=== PATIENT | male | born 1955 | race African-American/Black ===

== ENCOUNTER 2020-07-02 22:11 | Inpatient (IN) | payer MEDICAID ==
[~2020-07-02] VITALS: Ht 182.9 cm; Wt 80.7 kg
[2020-07-02 23:08] LABS: BASOPHILS 0.7 % (0-2); EOSINOPHILS 0.1 % (0-7); HEMATOCRIT 38.9 % (42.0-54.0); HEMOGLOBIN 13.3 g/dL (13.5-17.5); IMMATURE GRANULOCYTES 0.2 % (0-5); LYMPHOCYTES 27.3 % (15-50); MCH 32.3 pg (26.0-34.0); MCHC 34.2 g/dL (31.0-37.0); MCV 94.4 fL (80.0-100.0); MONOCYTES 7.2 % (2-11); NEUTROPHIL ABS# 5.19 10x3/uL (1.78-5.38); NEUTROPHILS 64.5 % (40-80); PLATELET COUNT 154 10x3/uL (130-400); RBC 4.12 10x6/uL (4.20-6.10); RDW 14.7 % (11.5-14.5); WBC 8.1 10x3/uL (4.8-10.8)
[2020-07-02 23:33] LABS: BILIRUBIN NEGATIVE (NEGATIVE); KETONE NEGATIVE (NEGATIVE); NITRITE NEGATIVE (NEGATIVE); UROBILINOGEN NORMAL mg/dL (< 2)
[2020-07-02 23:34] LABS: BACTERIA NONE SEEN HPF (NONE SEEN); SQUAMOUS EPITHELIAL 0-5 HPF (0-4); WHITE CELLS - URINE NONE SEEN HPF (0-1)
[2020-07-02 23:34] LABS: CALC OSMOLALITY 282 mosm/kg (275-300); CALCIUM 8.9 mg/dL (8.5-10.1); CARBON DIOXIDE 25.1 mmol/L (21.0-32.0); CHLORIDE - SERUM 101 mmol/L (98-107); GLUCOSE 99 mg/dL (74-106); SODIUM 143 mmol/L (136-145); UREA NITROGEN 7 mg/dL (7-18); eGFR NON AFRICAN AMERICAN 80 mL/min (90-120)
[2020-07-02 23:42] LABS: ALBUMIN 3.7 g/dL (3.4-5.0); ALKALINE PHOSPHATASE 170 U/L (30-120); ALT (SGPT) 56 U/L (10-68); AMYLASE - SERUM 80 U/L (25-115); BILIRUBIN - TOTAL 0.71 mg/dL (0.2-1.3); LIPASE 194 U/L (73-393); PROTEIN - SERUM 7.9 g/dL (6.4-8.2)
[2020-07-02 23:49] LABS: TROPONIN-I < 0.017 ng/mL (0.000-0.060)
[2020-07-03] VITALS (7 sets, daily range): BP systolic 96–186; BP diastolic 52–101; BMI 24.2
[2020-07-03 02:27] LABS: APTT 33.9 SECONDS (22.8-39.4); INR 1.29 (0.85-1.17); PROTIME 14.9 SECONDS (11.6-15.0)
[2020-07-03] MEDS ORDERED: NORVASC10 MG PO (03:22)
--- NOTE | 2020-07-03 03:40 | NUR ---
RECEIVED PT FROM ER VIA WHEELCHAIR. PT SITTING UP IN BED A&O X4. PIV TO RIGHT AC PATENT AND S/L, NO REDNESS OR SWELLING. ABD DISTENDED AND PT C/O PAIN 11/20. SCARS TO BILAT LOWER EXTREM. PT ABLE TO AMBULATE AD JENIFER. EDUCATED PT ON ISP, CL AND NEEDS, VERBALIZED UNDERSTANDING. BED LOW, CL IN REACH.
--- NOTE | 2020-07-03 07:30 | NUR ---
REC'D IN BED AWAKE. RESP EVEN AND UNLABORED WITH NO DISTRESS NOTED. CAN EXPRESS NEEDS AND WANTS. NO C/O NOTED OR VOICED. ASSESSMENT COMPLETED. C/L IN REACH AT BEDSIDE.
--- NOTE | 2020-07-03 09:31 | NUR ---
CALLED WAS PLACED LIFE TEACHER ABOUT PT HAVING ELEVATED BP OF 186/95 AND HE'S NPO. GOT THE OK TO GIVE PT PO CLONIDINE WITH SIP OF H2O. C/L IN REACH AT BEDSIDE.
[2020-07-03 10:17] LABS: BASOPHILS 0.5 % (0-2); EOSINOPHILS 0.3 % (0-7); HEMATOCRIT 43.5 % (42.0-54.0); HEMOGLOBIN 14.9 g/dL (13.5-17.5); IMMATURE GRANULOCYTES 0.2 % (0-5); LYMPHOCYTE ABS# 2.57 10x3/uL (1.32-3.57); LYMPHOCYTES 26.3 % (15-50); MCH 32.5 pg (26.0-34.0); MCHC 34.3 g/dL (31.0-37.0); MCV 94.8 fL (80.0-100.0); MEAN PLATELET VOLUME 9.7 fL (7.4-10.4); MONOCYTES 8.2 % (2-11); NEUTROPHIL ABS# 6.31 10x3/uL (1.78-5.38); NEUTROPHILS 64.5 % (40-80); PLATELET COUNT 169 10x3/uL (130-400); RBC 4.59 10x6/uL (4.20-6.10); RDW 15.2 % (11.5-14.5); WBC 9.8 10x3/uL (4.8-10.8)
--- NOTE | 2020-07-03 12:17 | NUR ---
I have reviewed this patient and I concur with the Shift Assessment completed by the Licensed Practical Nurse today this shift.
--- NOTE | 2020-07-03 12:35 | NUR ---
Nutrition reassessment: Diet order: Renal PO intake ~50% average of meals Labs reviewed; HD on hold at this time Ht: 6'2" Admit wt: 216# IBW: 190# +/-10% BMI: 27.8 Meds: daily MVI +BM Pt estimated nutritional needs remain the same from admit: 5764-4133 kcal (25-30 IBW) 70-85 gm protein ( 0.8-1.0 gm/kg IBW) 5208-0280 ml fluid or per MD Nutrition diagnosis remains inadequate oral intake R/T not feeling well AEB PO intake continues to be < 50% of meals. Nutrition goals: - PO intake will increase to =-/> 75% of meals, snacks - Meet est fluid needs without fluid overload - Stable wt +/-3# - Glucose maintained at or near normal range Nutrition interventions: Will continue to provide food choices with selective menus and honor food preferences within diet restrictions. Will offer Nerpo nutritional supplement with meals Recommendations: Please get a current wt to chart. RDN follow-up: 07/05/20
--- NOTE | 2020-07-03 13:37 | NUR ---
SPOKE WITH PT BROTHER UPDATE GIVEN AT THIS TIME.
--- NOTE | 2020-07-03 14:14 | NUR ---
C/O PAIN NOTED TI ABD/LEFT SIDE WAS MEDICATED WITH MORPHINE PER ORDERS. C/L IN REACH AT BEDSIDE.
[2020-07-03 19:02] LABS: UDS - AMPHET NEGATIVE QUAL (NEGATIVE); UDS - BARB NEGATIVE QUAL (NEGATIVE); UDS - BENZO NEGATIVE QUAL (NEGATIVE); UDS - COCAINE NEGATIVE QUAL (NEGATIVE); UDS - OPIATE POSITIVE QUAL (NEGATIVE); UDS - PCP NEGATIVE QUAL (NEGATIVE); UDS - THC NEGATIVE QUAL (NEGATIVE)
[2020-07-04 04:00] VITALS: BP 154/91
--- NOTE | 2020-07-04 04:00 | NUR ---
EMERSON'S ANXIETY WAS MANAGED WITH THE PRESCRIBED ATIVAN, HE APPEARED TO REST WELL THROUGH THE NIGHT.
[2020-07-04 06:53] LABS: BASOPHILS 0.6 % (0-2); EOSINOPHILS 0.7 % (0-7); HEMATOCRIT 35.8 % (42.0-54.0); IMMATURE GRANULOCYTES 0.3 % (0-5); LYMPHOCYTE ABS# 1.44 10x3/uL (1.32-3.57); LYMPHOCYTES 20.9 % (15-50); MCH 31.6 pg (26.0-34.0); MCHC 33.5 g/dL (31.0-37.0); MCV 94.2 fL (80.0-100.0); MEAN PLATELET VOLUME 9.5 fL (7.4-10.4); NEUTROPHIL ABS# 4.45 10x3/uL (1.78-5.38); NEUTROPHILS 64.5 % (40-80); PLATELET COUNT 148 10x3/uL (130-400); RDW 14.4 % (11.5-14.5); WBC 6.9 10x3/uL (4.8-10.8)
[2020-07-04 07:08] LABS: ALBUMIN 3.4 g/dL (3.4-5.0); ANION GAP 10.8 mmol/L (8-16); BILIRUBIN - TOTAL 1.26 mg/dL (0.2-1.3); CALCIUM 8.7 mg/dL (8.5-10.1); CARBON DIOXIDE 31.4 mmol/L (21.0-32.0); CREATININE - SERUM 1.1 mg/dL (0.6-1.3); MAGNESIUM - SERUM 1.5 mg/dL (1.8-2.4); POTASSIUM - SERUM 3.2 mmol/L (3.5-5.1); PROTEIN - SERUM 7.5 g/dL (6.4-8.2)
[2020-07-04 08:55] VITALS: BP 158/91
--- NOTE | 2020-07-04 11:23 | MORECARE ---
CASE MANAGEMENT DISCHARGE SUMMARY PATIENT: EDU CHUNG UNIT: [id number] ADM DATE: 07/03/20 AGE: 65 : 55 SEX: M ROOM/BED: D.2240 AUTHOR: CANDIDA,DOC PHYSICIAN: REFERRING PHYSICIAN: AMANDA SIMEON MD DATE OF SERVICE: 07/04/20 Case Management Discharge Planning Summary DCP REVIEW SUMMARY ANTICIPATED D/C DATE: EXPECTED LOS : CASE STATUS: DCP Initiated INITIAL REVIEW: 07/03/2020 INITIAL REVIEWER: Mandie Lennon FINAL DISCHARGE DISPOSITION: : FINAL REVIEWER: FINAL REVIEW DATE: DCP Focus Questions & Answers - Added on: QUESTION: ANSWER : PATIENT: EDU CHUNG ENCOUNTER: [id number] MEDICAL RECORD#: [id number] ADMISSION DATE: 07/03/2020 DISCHARGE DATE: ATTENDING MD: CAILIN SIMEON : AGE: 65 MARITAL STATUS: S DC PLAN ID: [id number] FACILITY: [facility] PRINTED ON: 07/04/20 11:23 CT All edits/amendments must be made on the electronic document DICTATION DATE: 07/04/20 112 SERVICE CORRESPONDENT: DM 07/04/20 1123 RPT#: [id number] DC DATE: STATUS: ADM IN [facility] [address] [place] [address] END OF REPORT
--- NOTE | 2020-07-04 11:36 | MORECARE ---
CASE MANAGEMENT DISCHARGE SUMMARY PATIENT: EDU CHUNG UNIT: [id number] ADM DATE: 07/03/20 AGE: 65 : 55 SEX: M ROOM/BED: D.2240 AUTHOR: CANDIDA,DOC PHYSICIAN: REFERRING PHYSICIAN: AMANDA SIMEON MD DATE OF SERVICE: 07/04/20 Case Management Discharge Planning Summary COMMENTS ENTERED DATE: 07/04/20 11:22 CT COMMENT TYPE: Discharge Planning REVIEWER: Mandie Lennon CM met with patient at bedside after obtaining verbal consent. CM discussed availability / needs of home health, REHAB and medical equipment. Met with patient and his sister Griselda yesterday. He lives with family, has [place] here [place]. States has no pcp and uses [facility] for pharmacy. His phone number at home is [phone]. Patient and family are unsure of any discharge needs at this time. They also asked about Medicaid, I called Eber from [employer] and he said he will meet with them. CM to follow and assist as needed. DCP REVIEW SUMMARY ANTICIPATED D/C DATE: EXPECTED LOS : CASE STATUS: DCP Initiated INITIAL REVIEW: 07/03/2020 INITIAL REVIEWER: Mandie Lennon FINAL DISCHARGE DISPOSITION: : FINAL REVIEWER: FINAL REVIEW DATE: DCP Focus Questions & Answers - Added on: QUESTION: ANSWER : PATIENT: EDU CHUNG ENCOUNTER: [id number] MEDICAL RECORD#: [id number] ADMISSION DATE: 07/03/2020 DISCHARGE DATE: ATTENDING MD: CAILIN SIMEON : AGE: 65 MARITAL STATUS: S DC PLAN ID: [id number] FACILITY: [facility] PRINTED ON: 07/04/20 11:36 CT All edits/amendments must be made on the electronic document DICTATION DATE: 07/04/20 113 PRESALES SENIOR SPECIALIST: MARRY 07/04/20 1136 RPT#: [id number] DC DATE: STATUS: ADM IN [facility] [address] [place] [address] END OF REPORT
[2020-07-04 13:07] VITALS: BP 133/84
[2020-07-04 14:45] VITALS: Ht 182.9 cm; Wt 80.7 kg
[2020-07-04 17:07] VITALS: BP 137/91
[2020-07-04 20:00] VITALS: BP 143/82
[2020-07-05 04:00] VITALS: BP 153/92
--- NOTE | 2020-07-05 04:31 | NUR ---
PATIENT HAS HAD HIS PAIN CONTROLLED WITH THE PRESCRIBED PAIN MEDICATION, HE APPEARS TO HAVE RESTED WELL THROUGH THE NIGHT.
--- NOTE | 2020-07-05 07:08 | NUR ---
UP IN ROOM,WITHOUT DISTRESS. DENIES NEEDS AT PRESENT.INSTRUCTED CALL LIGHT USE.
[2020-07-05 09:00] VITALS: BP 148/98
--- NOTE | 2020-07-05 10:26 | MORECARE ---
CASE MANAGEMENT DISCHARGE SUMMARY PATIENT: EDU CHUNG UNIT: [id number] ADM DATE: 07/03/20 AGE: 65 : 55 SEX: M ROOM/BED: D.2240 AUTHOR: CANDIDA,DOC PHYSICIAN: REFERRING PHYSICIAN: AMANDA SIMEON MD DATE OF SERVICE: 07/05/20 Case Management Discharge Planning Summary COMMENTS ENTERED DATE: 07/04/20 11:22 CT COMMENT TYPE: Discharge Planning REVIEWER: Mandie Lennon CM met with patient at bedside after obtaining verbal consent. CM discussed availability / needs of home health, REHAB and medical equipment. Met with patient and his sister Griselda yesterday. He lives with family, has [place] here from [place] state. has no pcp and uses [facility] for pharmacy. His phone number at home is [phone]. Patient and family are unsure of any discharge needs at this time. They also asked about Medicaid, I called Eber from [employer] and he said he will meet with them. CM to follow and assist as needed. DCP REVIEW SUMMARY ANTICIPATED D/C DATE: EXPECTED LOS : CASE STATUS: DCP Initiated INITIAL REVIEW: 07/03/2020 INITIAL REVIEWER: Mandie Lennon FINAL DISCHARGE DISPOSITION: : FINAL REVIEWER: FINAL REVIEW DATE: LACE: UPDATED BY: [email or web address]: Mandie Lennon on 07/04/20 15:39 CT QUESTION: ANSWER Length of Stay (Prior Admit): None Acute Admission: Inpatient Comorbidity: (1PT) DM no complications, Cerebrovascular Disease, Hx of [place], PVD, PUD Comorbidity Total Score 1 PT Emergency Room visits during previous 6 months: 0 Visits DCP Focus Questions & Answers - Added on: QUESTION: ANSWER : PATIENT: EDU CHUNG ENCOUNTER: [id number] MEDICAL RECORD#: [id number] ADMISSION DATE: 07/03/2020 DISCHARGE DATE: ATTENDING MD: CAILIN SIMEON : AGE: 65 MARITAL STATUS: S DC PLAN ID: [id number] FACILITY: [facility] PRINTED ON: 07/05/20 10:26 CT All edits/amendments must be made on the electronic document DICTATION DATE: 07/05/20 1026 HEAT TREATING FURNACE TENDER: MARRY 07/05/20 1026 RPT#: [id number] DC DATE: STATUS: ADM IN [facility] [address] [place] [address] END OF REPORT
[2020-07-05 11:18] LABS: BASOPHILS 0.3 % (0-2); EOSINOPHILS 0.6 % (0-7); HEMATOCRIT 36.6 % (42.0-54.0); HEMOGLOBIN 12.2 g/dL (13.5-17.5); IMMATURE GRANULOCYTES 0.1 % (0-5); LYMPHOCYTE ABS# 1.13 10x3/uL (1.32-3.57); LYMPHOCYTES 16.9 % (15-50); MCH 31.9 pg (26.0-34.0); MCHC 33.3 g/dL (31.0-37.0); MCV 95.6 fL (80.0-100.0); MEAN PLATELET VOLUME 10.1 fL (7.4-10.4); MONOCYTES 11.2 % (2-11); NEUTROPHIL ABS# 4.73 10x3/uL (1.78-5.38); NEUTROPHILS 70.9 % (40-80); PLATELET COUNT 145 10x3/uL (130-400); RBC 3.83 10x6/uL (4.20-6.10); RDW 14.5 % (11.5-14.5); WBC 6.7 10x3/uL (4.8-10.8)
[2020-07-05 11:46] LABS: ALBUMIN 3.4 g/dL (3.4-5.0); ANION GAP 16.2 mmol/L (8-16); CARBON DIOXIDE 28.5 mmol/L (21.0-32.0); CREATININE - SERUM 1.3 mg/dL (0.6-1.3); POTASSIUM - SERUM 3.7 mmol/L (3.5-5.1); PROTEIN - SERUM 6.9 g/dL (6.4-8.2)
[2020-07-05 12:17] VITALS: BP 106/75
--- NOTE | 2020-07-05 13:46 | NUR ---
Nutrition follow-up: Pt c/o constipation; appetite okay Diet order: regular No po intake recorded Labs reviewed Wt: 177# Miralax ordered for constipation Will continue to provide food choices and honor food preferences. Follow-up: 07/11/20
[2020-07-05] MEDS ORDERED: ALDACTONE25 MG PO (14:17)
--- NOTE | 2020-07-05 17:47 | NUR ---
DC HOME WITH ALL PERSONAL BELONGS AND VOICE UNDERSTANDING OF DC INSTRUCTIONS.
--- NOTE | 2020-07-05 19:31 | MORECARE ---
CASE MANAGEMENT DISCHARGE SUMMARY PATIENT: EDU CHUNG UNIT: [id number] ADM DATE: 07/03/20 AGE: 65 : 55 SEX: M ROOM/BED: D.2240 AUTHOR: CANDIDA,DOC PHYSICIAN: REFERRING PHYSICIAN: AMANDA SIMEON MD DATE OF SERVICE: 07/05/20 Case Management Discharge Planning Summary COMMENTS ENTERED DATE: 07/04/20 11:22 CT COMMENT TYPE: Discharge Planning REVIEWER: Mandie Lennon CM met with patient at bedside after obtaining verbal consent. CM discussed availability / needs of home health, REHAB and medical equipment. Met with patient and his sister Griselda yesterday. He lives with family, has [place] here from [place]. has no pcp and uses [facility] for pharmacy. His phone number at home is [phone]. Patient and family are unsure of any discharge needs at this time. They also asked about Medicaid, I called Eber from [employer] and he said he will meet with them. CM to follow and assist as needed. DCP REVIEW SUMMARY ANTICIPATED D/C DATE: EXPECTED LOS : CASE STATUS: DCP Initiated INITIAL REVIEW: 07/03/2020 INITIAL REVIEWER: Mandie Lennon FINAL DISCHARGE DISPOSITION: : FINAL REVIEWER: FINAL REVIEW DATE: LACE: UPDATED BY: [id number]: Mandie Lennon on 07/04/20 15:39 CT QUESTION: ANSWER Length of Stay (Prior Admit): None Acute Admission: Inpatient Comorbidity: (1PT) DM no complications, Cerebrovascular Disease, Hx of MS, PVD, PUD Comorbidity Total Score 1 PT Emergency Room visits during previous 6 months: 0 Visits DCP Focus Questions & Answers - Added on: QUESTION: ANSWER : PATIENT: EDU CHUNG ENCOUNTER: [id number] MEDICAL RECORD#: [id number] ADMISSION DATE: 07/03/2020 DISCHARGE DATE: 07/05/2020 ATTENDING MD: CAILIN SIMEON : AGE: 65 MARITAL STATUS: S DC PLAN ID: [id number] FACILITY: [facility] PRINTED ON: 07/05/20 19:31 CT All edits/amendments must be made on the electronic document DICTATION DATE: 07/05/201930 MOLD CARPENTER: MARRY 07/05/201930 RPT#: [id number] DC DATE:07/05/20 STATUS: DIS IN [facility] [address] [facility] [place] [address] END OF REPORT
== END 2020-07-05 17:47 | disposition home or self-care (01) | DRG 434 ==
LOC: D.ER 22:11 → D.MS 07-03 02:32
PROVIDERS: Family Medicine; ADMIT Family Medicine; ATTEND Family Medicine
DX: K70.31 Alcoholic cirrhosis of liver with ascites (principal); K80.80 Other cholelithiasis without obstruction; I10 Essential (primary) hypertension; K21.9 Gastro-esophageal reflux disease without esophagitis; R74.01 Elevation of levels of liver transaminase levels; E87.6 Hypokalemia; J45.909 Unspecified asthma, uncomplicated; Z85.528 Personal history of other malignant neoplasm of kidney

== ENCOUNTER 2020-08-12 11:23 | Inpatient (IN) | payer MEDICAID ==
[~2020-08-12] VITALS: Ht 182.9 cm; Wt 80.9 kg
[~2020-08-12 11:23] MED LIST: ALDACTONE25 MG PO; NORVASC10 MG PO
[2020-08-12 12:19] LABS: BASOPHILS 0.4 % (0-2); EOSINOPHILS 0.1 % (0-7); HEMATOCRIT 34.9 % (42.0-54.0); HEMOGLOBIN 11.7 g/dL (13.5-17.5); IMMATURE GRANULOCYTES 0.1 % (0-5); LYMPHOCYTE ABS# 0.58 10x3/uL (1.32-3.57); LYMPHOCYTES 7.7 % (15-50); MCH 31.9 pg (26.0-34.0); MCHC 33.5 g/dL (31.0-37.0); MCV 95.1 fL (80.0-100.0); MEAN PLATELET VOLUME 9.6 fL (7.4-10.4); MONOCYTES 6.3 % (2-11); NEUTROPHIL ABS# 6.45 10x3/uL (1.78-5.38); NEUTROPHILS 85.4 % (40-80); PLATELET COUNT 176 10x3/uL (130-400); RBC 3.67 10x6/uL (4.20-6.10); WBC 7.6 10x3/uL (4.8-10.8)
[2020-08-12 12:34] LABS: CALC OSMOLALITY 268 mosm/kg (275-300); CALCIUM 9.2 mg/dL (8.5-10.1); CARBON DIOXIDE 20.8 mmol/L (21.0-32.0); CHLORIDE - SERUM 96 mmol/L (98-107); GLUCOSE 118 mg/dL (74-106); SODIUM 134 mmol/L (136-145); UREA NITROGEN 12 mg/dL (7-18); eGFR NON AFRICAN AMERICAN 80 mL/min (90-120)
[2020-08-12 12:43] LABS: ALBUMIN 3.5 g/dL (3.4-5.0); ALKALINE PHOSPHATASE 200 U/L (30-120); ALT (SGPT) 51 U/L (10-68); AMYLASE - SERUM 66 U/L (25-115); BILIRUBIN - TOTAL 1.24 mg/dL (0.2-1.3); LIPASE 73 U/L (73-393); PROTEIN - SERUM 7.8 g/dL (6.4-8.2)
[2020-08-12 12:46] LABS: TROPONIN-I < 0.017 ng/mL (0.000-0.060)
[2020-08-12 13:51] LABS: INR 1.35 (0.85-1.17); PROTIME 15.5 SECONDS (11.6-15.0)
--- NOTE | 2020-08-12 14:40 | NUR ---
FRENCH EDGE OPERATOR AND INCOME AUDITOR NOTIFIED OF STRICT NEED FOR PT TO REMAIN ON TELE AT ALL TIMES, NOTE MADE INSTRUCTED
[2020-08-12 14:43] VITALS: BP 177/93; BMI 24.2
[2020-08-12 19:35] VITALS: Ht 182.9 cm; Wt 80.9 kg
[2020-08-12 20:00] VITALS: BP 166/99
[2020-08-13 02:11] LABS: CREATINE KINASE 353 UL (21-232); TROPONIN-I 0.021 ng/mL (0.000-0.060)
[2020-08-13 04:00] VITALS: BP 135/79
[2020-08-13 06:04] LABS: BASOPHILS 0.6 % (0-2); EOSINOPHILS 0.5 % (0-7); HEMOGLOBIN 10.2 g/dL (13.5-17.5); IMMATURE GRANULOCYTES 0.2 % (0-5); LYMPHOCYTE ABS# 1.92 10x3/uL (1.32-3.57); LYMPHOCYTES 23.4 % (15-50); MCH 31.8 pg (26.0-34.0); MCV 93.5 fL (80.0-100.0); MEAN PLATELET VOLUME 10.5 fL (7.4-10.4); MONOCYTES 10.2 % (2-11); NEUTROPHIL ABS# 5.33 10x3/uL (1.78-5.38); NEUTROPHILS 65.1 % (40-80); PLATELET COUNT 154 10x3/uL (130-400); RBC 3.21 10x6/uL (4.20-6.10); WBC 8.2 10x3/uL (4.8-10.8)
[2020-08-13 06:17] LABS: INR 1.4 (0.85-1.17); PROTIME 15.9 SECONDS (11.6-15.0)
[2020-08-13 06:42] LABS: ALKALINE PHOSPHATASE 157 U/L (30-120); ALT (SGPT) 42 U/L (10-68); BILIRUBIN - TOTAL 1.58 mg/dL (0.2-1.3); CALCIUM 9.2 mg/dL (8.5-10.1); CHLORIDE - SERUM 103 mmol/L (98-107); CREATINE KINASE 282 UL (21-232); CREATININE - SERUM 1.2 mg/dL (0.6-1.3); GLUCOSE 94 mg/dL (74-106); PHOSPHOROUS 2.6 mg/dL (2.5-4.9); SODIUM 139 mmol/L (136-145); TROPONIN-I 0.021 ng/mL (0.000-0.060); eGFR NON AFRICAN AMERICAN 64 mL/min (90-120)
[2020-08-13 06:43] LABS: CALC OSMOLALITY 278 mosm/kg (275-300); POTASSIUM - SERUM 3.3 mmol/L (3.5-5.1); UREA NITROGEN 16 mg/dL (7-18)
--- NOTE | 2020-08-13 07:30 | NUR ---
ASSESSMENT PER FLOW SHEET. PATIENT IS WITHOUT DISTRESS.ASSISTED TO BATHROOM AND BACK TO BED. ABIEL PLACED ON BED FOR FALL PREVENTION. IS INSTRUCTED WITH 700ML RETURN DEMONSTRATION. PLEXI PULSES PLACED ON PATIENT.CALL LIGHT USE INSTRUCTED. ABIEL ON AND WORKING.
--- NOTE | 2020-08-13 07:48 | NUR ---
PT DID C/O UNCONTROLLED PAIN LAST NIGHT WITH ARINA, PAPER BAG MACHINE OPERATOR, OC NOTIFIED AND NORCO D/C'D WITH MS ORDERED AND EFFECTIVE FOR PAIN RELIEF. PT'S BP WAS 163/96 AND ARINA AGAIN CALLED AND ADVISED THIS NURSE TO GIVE PRN ATIVAN FOR SAME. CONSENTS HAVE BEEN OBTAINED AND EKG FOR PT PROCEDURE TODAY. PT NO LONGER STEADY ON FEET AND INCREASED FALL PRECAUTIONS IMPLEMENTED.
[2020-08-13 08:59] LABS: BILIRUBIN NEGATIVE (NEGATIVE); KETONE NEGATIVE (NEGATIVE); NITRITE NEGATIVE (NEGATIVE); UROBILINOGEN NORMAL mg/dL (< 2)
[2020-08-13 09:05] LABS: UDS - AMPHET NEGATIVE QUAL (NEGATIVE); UDS - BARB NEGATIVE QUAL (NEGATIVE); UDS - BENZO POSITIVE QUAL (NEGATIVE); UDS - COCAINE NEGATIVE QUAL (NEGATIVE); UDS - OPIATE POSITIVE QUAL (NEGATIVE); UDS - PCP NEGATIVE QUAL (NEGATIVE); UDS - THC NEGATIVE QUAL (NEGATIVE)
[2020-08-13 09:11] VITALS: BP 128/87
--- NOTE | 2020-08-13 11:00 | NUR ---
TO GI LAB VIA BED
--- NOTE | 2020-08-13 12:03 | NUR ---
BACK FROM GI LAB. PATIENT IS AWAKE AND TOLERATING CLD. DENIES NEEDS
[2020-08-13 12:43] LABS: CKMB 3.2 U/L (0.0-3.6); CREATINE KINASE 318 UL (21-232)
[2020-08-13 12:44] LABS: TROPONIN-I < 0.017 ng/mL (0.000-0.060)
[2020-08-13 18:22] VITALS: BP 142/78
[2020-08-13 20:00] VITALS: BP 135/76
[2020-08-14 04:00] VITALS: BP 136/90
[2020-08-14 06:34] LABS: BASOPHILS 0.4 % (0-2); EOSINOPHILS 1.5 % (0-7); HEMATOCRIT 30.4 % (42.0-54.0); HEMOGLOBIN 10.1 g/dL (13.5-17.5); IMMATURE GRANULOCYTES 0.1 % (0-5); LYMPHOCYTE ABS# 1.51 10x3/uL (1.32-3.57); LYMPHOCYTES 20.5 % (15-50); MCH 31.5 pg (26.0-34.0); MCHC 33.2 g/dL (31.0-37.0); MCV 94.7 fL (80.0-100.0); MEAN PLATELET VOLUME 10.5 fL (7.4-10.4); MONOCYTES 9.6 % (2-11); NEUTROPHIL ABS# 5.01 10x3/uL (1.78-5.38); NEUTROPHILS 67.9 % (40-80); PLATELET COUNT 150 10x3/uL (130-400); RBC 3.21 10x6/uL (4.20-6.10); RDW 15.4 % (11.5-14.5); WBC 7.4 10x3/uL (4.8-10.8)
[2020-08-14 06:42] LABS: INR 1.48 (0.85-1.17); PROTIME 16.6 SECONDS (11.6-15.0)
[2020-08-14 06:59] LABS: ALBUMIN 3.1 g/dL (3.4-5.0); ANION GAP 16.2 mmol/L (8-16); BILIRUBIN - TOTAL 1.42 mg/dL (0.2-1.3); CARBON DIOXIDE 23.4 mmol/L (21.0-32.0); CREATININE - SERUM 1.1 mg/dL (0.6-1.3); MAGNESIUM - SERUM 2.2 mg/dL (1.8-2.4); PHOSPHOROUS 2.9 mg/dL (2.5-4.9); POTASSIUM - SERUM 3.6 mmol/L (3.5-5.1); PROTEIN - SERUM 7.2 g/dL (6.4-8.2)
[2020-08-14 08:17] VITALS: BP 132/71
--- NOTE | 2020-08-14 09:55 | NUR ---
ASSESSMENT PER FLOW SHEET. PATIENT IS WITHOUT DISTRESS.FALL PREVENTION WITH ABIEL.FAMILY TO VISIT.
[2020-08-14] MEDS ORDERED: ALDACTONE25 MG PO (11:38)
[2020-08-14] MEDS ORDERED: NORVASC10 MG PO (11:38)
[2020-08-14] MEDS ORDERED: PROTONIX40 MG PO (11:40)
[2020-08-14] MEDS ORDERED: AMBIEN5 MG PO (11:41)
[2020-08-14] MEDS ORDERED: CARAFATE1 G PO (11:43)
--- NOTE | 2020-08-14 12:45 | MORECARE ---
CASE MANAGEMENT DISCHARGE SUMMARY PATIENT: EDU CHUNG UNIT: [id number] ADM DATE: 08/12/20 AGE: 65 : 55 SEX: M ROOM/BED: D.2207 AUTHOR: CANDIDA,DOC PHYSICIAN: REFERRING PHYSICIAN: RONNIE LAI MD DATE OF SERVICE: 08/14/20 Case Management Discharge Planning Summary COMMENTS ENTERED DATE: 08/14/20 12:20 CT COMMENT TYPE: Discharge Planning REVIEWER: Jessica Coronado CM met with patient to complete initial dc planning assessment. CM educated patient on the CM role and verbal consent given by patient to complete assessment. Patient lives at home with his mother and sister. At discharge patient plans to return home and feels this is a safe discharge. His sister will be his compactor driver home. CM discussed availability of home health, rehab services, and medical equipment. Patient stated he does not need or want any DME/HH. He does not have a PCP, we are attempting to get him a PCP but there are not any [facility] slots. I will give information to him about [facility]. Patient denied known discharge needs at this time. CM will continue to follow and will assist as needed with dc plans/needs. DCP REVIEW SUMMARY ANTICIPATED D/C DATE: EXPECTED LOS : CASE STATUS: DCP Initiated INITIAL REVIEW: 08/12/2020 INITIAL REVIEWER: Jessica Coronado FINAL DISCHARGE DISPOSITION: 01 : Home or Self Care (Routine Discharge) FINAL REVIEWER: FINAL REVIEW DATE: DCP Focus Questions & Answers DCP Screen QUESTION: ANSWER High Risk Factors: : Decreased adherence to treatment plan DCP Evaluation QUESTION: ANSWER Patient's ability to cope with chronic illness : d. No chronic illness Would patient like to participate in any Care Coordination programs (if applicable): : Not applicable Mental health screen: : No mental health history DCP Re-evaluation QUESTION: ANSWER Would patient like to participate in any Care Coordination programs (if applicable): : Not applicable PATIENT: EDU CHUNG ENCOUNTER: [id number] MEDICAL RECORD#: [id number] ADMISSION DATE: 08/12/2020 DISCHARGE DATE: ATTENDING MD: RONNIE POPE : AGE: 65 MARITAL STATUS: S DC PLAN ID: [id number] FACILITY: [facility] PRINTED ON: 08/14/20 12:45 CT All edits/amendments must be made on the electronic document DICTATION DATE: 08/14/201244 SPORTS EQUIPMENT RACKER: MARRY 08/14/201244 RPT#: [id number] DC DATE: STATUS: ADM IN [facility] [address] [place] [address] END OF REPORT
[2020-08-14 12:48] VITALS: BP 151/78
--- NOTE | 2020-08-14 12:57 | MORECARE ---
CASE MANAGEMENT DISCHARGE SUMMARY PATIENT: EDU CHUNG UNIT: [id number] ADM DATE: 08/12/20 AGE: 65 : 55 SEX: M ROOM/BED: D.2207 AUTHOR: CANDIDA,DOC PHYSICIAN: REFERRING PHYSICIAN: RONNIE LAI MD DATE OF SERVICE: 08/14/20 Case Management Discharge Planning Summary COMMENTS ENTERED DATE: 08/14/20 12:20 CT COMMENT TYPE: Discharge Planning REVIEWER: Jessica Coronado CM met with patient to complete initial dc planning assessment. CM educated patient on the CM role and verbal consent given by patient to complete assessment. Patient lives at home with his mother and sister. At discharge patient plans to return home and feels this is a safe discharge. His sister will be his construction driver home. CM discussed availability of home health, rehab services, and medical equipment. Patient stated he does not need or want any DME/HH. He does not have a PCP, we are attempting to get him a PCP but there are not any [facility] slots. I will give information to him about [facility]. Patient denied known discharge needs at this time. CM will continue to follow and will assist as needed with dc plans/needs. DCP REVIEW SUMMARY ANTICIPATED D/C DATE: EXPECTED LOS : CASE STATUS: DCP Initiated INITIAL REVIEW: 08/12/2020 INITIAL REVIEWER: Jessica Coronado FINAL DISCHARGE DISPOSITION: 01 : Home or Self Care (Routine Discharge) FINAL REVIEWER: FINAL REVIEW DATE: DCP Focus Questions & Answers DCP Screen QUESTION: ANSWER High Risk Factors: : Decreased adherence to treatment plan DCP Evaluation QUESTION: ANSWER Family / Caregiver's ability to cope with chronic illness: : a. Adequate (ability to meet patient's medical needs, ensures patient attends medical appts.) Patient's ability to cope with chronic illness : d. No chronic illness Patient's current cognitive status: : *Oriented to person, place, situation, time and present Patient and/or caregiver agree upon recommended discharge plan? : Yes Physical Status: : Independent with ADL's Family / Caregiver's ability to cope with chronic illness: : b. Minimal (occasionally not dependable to meet pt's. needs, can meet pt's. basic ADL's) Functional screen assessment: : Other Functional screen assessment: : Can meet basic needs but may require referral for resources Does the patient have the ability to pay for or attain post discharge needs / services? : Yes Living Arrangements: : Home with Extended Family Equipment needed for post hospitalization: : None Functional screen comments: : needs a pcp Living arrangements comments: : lives with mom and sister Baseline cognitive status: : *Oriented to person, place, situation, time and present Patient with capacity for self-care or can be cared for in same environment as prior to hospitalization? : Yes Physical environment modification needed / anticipated for discharge: : No Medication Management: : Patient states can afford medications [facility]acy name(s): : [facility] no pcp Planned post hospital services available for patient? : No Does Patient have transportation to get home and to follow-up medical appointments when discharged from the hospital? : Yes Would patient like to participate in any Care Coordination programs (if applicable): : Not applicable Comments: : sister will drive him home Does the patient have electricity at home? : Yes Does the patient have running water in their house? : Yes Equipment in use: : None Equipment agency name and contact information: : none Mental health screen: : No mental health history Psychosocial status: : Independent adult (18-64) Abuse/Neglect: : None Contact information for resources in use: : gave info to [facility] DCP Re-evaluation QUESTION: ANSWER Would patient like to participate in any Care Coordination programs (if applicable): : Not applicable PATIENT: EDU CHUNG ENCOUNTER: [id number] MEDICAL RECORD#: [id number] ADMISSION DATE: 08/12/2020 DISCHARGE DATE: ATTENDING MD: RONNIE POPE : AGE: 65 MARITAL STATUS: S DC PLAN ID: [id number] FACILITY: [facility] PRINTED ON: 08/14/20 12:57 CT All edits/amendments must be made on the electronic document DICTATION DATE: 08/14/20 1257 LUMBER STACKER OPERATOR: DM 08/14/20 1257 RPT#: [id number] DC DATE: STATUS: ADM IN [facility] [address] [place] [address] END OF REPORT
--- NOTE | 2020-08-14 14:57 | NUR ---
DISCHARGE INSTRUCTIONS,STATES UNDERSTANDING. IV DCD WITHCATH TIP INTACT. WAITING ON RIDE FOR TRANSPORT HOME
--- NOTE | 2020-08-14 15:09 | MORECARE ---
CASE MANAGEMENT DISCHARGE SUMMARY PATIENT: EDU CHUNG UNIT: [id number] ADM DATE: 08/12/20 AGE: 65 : 55 SEX: M ROOM/BED: D.2207 AUTHOR: CANDIDA,DOC PHYSICIAN: REFERRING PHYSICIAN: RONNIE LAI MD DATE OF SERVICE: 08/14/20 Case Management Discharge Planning Summary COMMENTS ENTERED DATE: 08/14/20 12:20 CT COMMENT TYPE: Discharge Planning REVIEWER: Jessica Coronado CM met with patient to complete initial dc planning assessment. CM educated patient on the CM role and verbal consent given by patient to complete assessment. Patient lives at home with his mother and sister. At discharge patient plans to return home and feels this is a safe discharge. His sister will be his cdl a driver home. CM discussed availability of home health, rehab services, and medical equipment. Patient stated he does not need or want any DME/HH. He does not have a PCP, we are attempting to get him a PCP but there are not any [facility] slots. I will give information to him about [facility]. Patient denied known discharge needs at this time. CM will continue to follow and will assist as needed with dc plans/needs. DCP REVIEW SUMMARY ANTICIPATED D/C DATE: EXPECTED LOS : CASE STATUS: DCP Initiated INITIAL REVIEW: 08/12/2020 INITIAL REVIEWER: Jessica Coronado FINAL DISCHARGE DISPOSITION: 01 : Home or Self Care (Routine Discharge) FINAL REVIEWER: FINAL REVIEW DATE: DCP Focus Questions & Answers DCP Screen QUESTION: ANSWER High Risk Factors: : Decreased adherence to treatment plan DCP Evaluation QUESTION: ANSWER Family / Caregiver's ability to cope with chronic illness: : a. Adequate (ability to meet patient's medical needs, ensures patient attends medical appts.) Patient's ability to cope with chronic illness : d. No chronic illness Patient's current cognitive status: : *Oriented to person, place, situation, time and present Patient and/or caregiver agree upon recommended discharge plan? : Yes Physical Status: : Independent with ADL's Family / Caregiver's ability to cope with chronic illness: : b. Minimal (occasionally not dependable to meet pt's. needs, can meet pt's. basic ADL's) Functional screen assessment: : Other Functional screen assessment: : Can meet basic needs but may require referral for resources Does the patient have the ability to pay for or attain post discharge needs / services? : Yes Living Arrangements: : Home with Extended Family Equipment needed for post hospitalization: : None Functional screen comments: : needs a pcp Living arrangements comments: : lives with mom and sister Baseline cognitive status: : *Oriented to person, place, situation, time and present Patient with capacity for self-care or can be cared for in same environment as prior to hospitalization? : Yes Physical environment modification needed / anticipated for discharge: : No Medication Management: : Patient states can afford medications Pharmacy name(s): : [facility] no [facility] Planned post hospital services available for patient? : No Does Patient have transportation to get home and to follow-up medical appointments when discharged from the hospital? : Yes Would patient like to participate in any Care Coordination programs (if applicable): : Not applicable Comments: : sister will drive him home Does the patient have electricity at home? : Yes Does the patient have running water in their house? : Yes Equipment in use: : None Equipment agency name and contact information: : none Mental health screen: : No mental health history Psychosocial status: : Independent adult (18-64) Abuse/Neglect: : None Contact information for resources in use: : gave info to [facility] DCP Re-evaluation QUESTION: ANSWER Would patient like to participate in any Care Coordination programs (if applicable): : Not applicable PATIENT: EDU CHUNG ENCOUNTER: [id number] MEDICAL RECORD#: [id number] ADMISSION DATE: 08/12/2020 DISCHARGE DATE: ATTENDING MD: RONNIE POPE : AGE: 65 MARITAL STATUS: S DC PLAN ID: [id number] FACILITY: [facility] PRINTED ON: 08/14/20 15:09 CT All edits/amendments must be made on the electronic document DICTATION DATE: 08/14/20 1509 MATERIAL CONTROL SPECIALIST: MARRY 08/14/20 1509 RPT#: [id number] DC DATE: STATUS: ADM IN [facility] [address] [place] [address] END OF REPORT
--- NOTE | 2020-08-14 15:12 | NUR ---
LEFT UNIT VIA WHEELCHAIR FOR TRANSPORT HOME
--- NOTE | 2020-08-15 10:22 | MORECARE ---
CASE MANAGEMENT DISCHARGE SUMMARY PATIENT: EDU CHUNG UNIT: [id number] ADM DATE: 08/12/20 AGE: 65 : 55 SEX: M ROOM/BED: D.2207 AUTHOR: CANDIDA,DOC PHYSICIAN: REFERRING PHYSICIAN: RONNIE LAI MD DATE OF SERVICE: 08/15/20 Case Management Discharge Planning Summary COMMENTS ENTERED DATE: 08/14/20 12:20 CT COMMENT TYPE: Discharge Planning REVIEWER: Jessica Coronado CM met with patient to complete initial dc planning assessment. CM educated patient on the CM role and verbal consent given by patient to complete assessment. Patient lives at home with his mother and sister. At discharge patient plans to return home and feels this is a safe discharge. 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 CM discussed availability of home health, rehab services, and medical equipment. Patient stated he does not need or want any DME/HH. He does not have a PCP, we are attempting to get him a PCP but there are not any [facility] slots. I will give information to him about [facility]. Patient denied known discharge needs at this time. CM will continue to follow and will assist as needed with dc plans/needs. DCP REVIEW SUMMARY ANTICIPATED D/C DATE: EXPECTED LOS : CASE STATUS: DCP Initiated INITIAL REVIEW: 08/12/2020 INITIAL REVIEWER: Jessica Coronado FINAL DISCHARGE DISPOSITION: 01 : Home or Self Care (Routine Discharge) FINAL REVIEWER: FINAL REVIEW DATE: DCP Focus Questions & Answers DCP Screen QUESTION: ANSWER High Risk Factors: : Decreased adherence to treatment plan DCP Evaluation QUESTION: ANSWER Patient and/or caregiver agree upon recommended discharge plan? : Yes Patient's current cognitive status: : *Oriented to person, place, situation, time and present Patient's ability to cope with chronic illness : d. No chronic illness Family / Caregiver's ability to cope with chronic illness: : a. Adequate (ability to meet patient's medical needs, ensures patient attends medical appts.) Does the patient have the ability to pay for or attain post discharge needs / services? : Yes Functional screen assessment: : Other Functional screen assessment: : Can meet basic needs but may require referral for resources Family / Caregiver's ability to cope with chronic illness: : b. Minimal (occasionally not dependable to meet pt's. needs, can meet pt's. basic ADL's) Physical Status: : Independent with ADL's Functional screen comments: : needs a pcp Equipment needed for post hospitalization: : None Living Arrangements: : Home with Extended Family Patient with capacity for self-care or can be cared for in same environment as prior to hospitalization? : Yes Baseline cognitive status: : *Oriented to person, place, situation, time and present Living arrangements comments: : lives with mom and sister Physical environment modification needed / anticipated for discharge: : No Medication Management: : Patient states can afford medications Planned post hospital services available for patient? : No Pharmacy name(s): : [email or web address] no pcp Does Patient have transportation to get home and to follow-up medical appointments when discharged from the hospital? : Yes Comments: : sister will drive him home Would patient like to participate in any Care Coordination programs (if applicable): : Not applicable Does the patient have electricity at home? : Yes Does the patient have running water in their house? : Yes Equipment in use: : None Equipment agency name and contact information: : none Mental health screen: : No mental health history Psychosocial status: : Independent adult (18-64) Abuse/Neglect: : None Contact information for resources in use: : gave info to [facility] DCP Re-evaluation QUESTION: ANSWER Would patient like to participate in any Care Coordination programs (if applicable): : Not applicable PATIENT: EDU CHUNG ENCOUNTER: [id number] MEDICAL RECORD#: [id number] ADMISSION DATE: 08/12/2020 DISCHARGE DATE: 08/14/2020 ATTENDING MD: RONNIE POPE : AGE: 65 MARITAL STATUS: S DC PLAN ID: [id number] FACILITY: [facility] PRINTED ON: 08/15/20 8:06 CT All edits/amendments must be made on the electronic document DICTATION DATE: 08/15/20805 USER INTERFACE DEVELOPER: MARRY 08/15/20805 RPT#: [id number] DC DATE:08/14/20 STATUS: DIS IN [facility] [address] [place] [address] END OF REPORT
== END 2020-08-14 15:13 | disposition home or self-care (01) | DRG 368 ==
LOC: D.ER 11:23 → D.MS 14:25
PROVIDERS: Family Medicine; Surgery; ADMIT Emergency Medicine; ATTEND Emergency Medicine
PROC: 0DJ08ZZ Inspection of Upper Intestinal Tract, Via Natural or Artificial Opening Endoscopic (ICD-10-PCS; principal; 2020-08-13 11:10)
DX: K20.91 Esophagitis, unspecified with bleeding (principal); K25.4 Chronic or unspecified gastric ulcer with hemorrhage; E87.1 Hypo-osmolality and hyponatremia; K70.30 Alcoholic cirrhosis of liver without ascites; D64.9 Anemia, unspecified; R74.01 Elevation of levels of liver transaminase levels; I10 Essential (primary) hypertension; K21.9 Gastro-esophageal reflux disease without esophagitis; J45.909 Unspecified asthma, uncomplicated; Z85.528 Personal history of other malignant neoplasm of kidney